=== PATIENT | female | born 1940 | race Caucasian/White ===

== ENCOUNTER 2018-03-15 12:55 | Emergency (ER) | payer MEDICARE, OTHER ==
[~2018-03-15] VITALS: Ht 162.6 cm; Wt 86.0 kg
[~2018-03-15 12:55] MED LIST: NEBUMIS6 XX
[2018-03-15 13:02] VITALS: BP 218/91; PULSE 95; RESP 18; TEMP 98; O2SAT 97
[2018-03-15 13:19] VITALS: BP 177/81; PULSE 97; RESP 20
--- NOTE | 2018-03-15 13:24 | PD ---
HPI Chief Complaint: Bleeding Time Seen by Provider: 13:14 Travel History International Travel<30 days: No Contact w/Intl Traveler<30days: No Traveled to known affect area: No History of Present Illness HPI 77-year-old female presents for evaluation of bleeding to the left lower extremity. She reports that 2 days ago she was shaving her left leg and she began bleeding from a varicose vein. She reports that the bleeding occurs every time she takes the bandage off. She endorses some aching pain associated with it. She is not on any blood thinning medications. She has no other complaints at this time. [facility] Past Medical History Arthritis: Yes (RA) COPD: Yes Kidney Stones: Yes Tetanus Vaccination: Unknown ?: Not Tubal Ligation: Yes Past Surgical History Tonsillectomy: Yes Social History Alcohol Use: Yes (1 DRINK DAILY) Tobacco Use: No Substance Use: No Allergies-Medications (Allergen,Severity, Reaction): Coded Allergies: acetaminophen (Unverified Allergy, Severe, NAUSEA, 03/15/18) propoxyphene (Unverified Allergy, Severe, VOMITING, 03/15/18) Reported Meds & Prescriptions Reported Meds & Active Scripts Active No Active Prescriptions or Reported Medications Review of Systems General / Constitutional: No: Fever, Chills Musculoskeletal: Positive: Pain Skin: Positive Other (Positive for bleeding) Physical Exam Narrative GENERAL: Well-developed well-nourished female no acute distress SKIN: Warm and dry. There is a bleeding varicose vein noted to the anterior left lower extremity. CARDIOVASCULAR: Regular rate and rhythm. No murmur appreciated. RESPIRATORY: No accessory muscle use. Clear to auscultation. Breath sounds equal bilaterally. MUSCULOSKELETAL: Skin as noted above. No edema. Data Data Last Documented VS Vital Signs Date Time Temp Pulse Resp B/P (MAP) Pulse Ox O2 Delivery O2 Flow Rate FiO2 03/15/18 13:19 97 20 177/81 (113) 03/15/18 13:02 98.0 97 Orders Orders Lidocai-Epi 1%-1:100,000 Inj (Xylocaine- (03/15/18 13:30) Silver Nitrate Applicators (Silver Nitra (03/15/18 13:45) Gelatin 12 Mm/7 Mm Top (Gelfoam 12 Mm/7 (03/15/18 13:45) [facility] Medical Decision Making Medical Screen Exam Complete: Yes Emergency Medical Condition: Yes Medical Record Reviewed: Yes Differential Diagnosis Bleeding varicose vein, abrasion, puncture wound Narrative Course A horizontal mattress suture will be placed around the bleeding wound. There continued to be slight oozing and therefore the skin was chemically cauterized with silver nitrate and then a pressure dressing with Gelfoam was placed. Patient's blood pressure is noted to be elevated in triage. She reports that although she does not check her blood pressure regularly, when she does check it is usually 120 systolic. Her blood pressure was rechecked when she was roomed and it is improved to 177/81. Likely elevated secondary to anxiety regards to her current situation. She does have a primary care physician. Recommended keeping a journal of her blood pressure readings for the next 1-2 weeks and to discuss the findings with her primary care physician. She is agreeable to this plan. She is requesting the name of truck service manager and vascular surgeon associated with [facility] that she would like to follow-up with in regards to her varicose veins as well as for routine cardiology evaluation. The names will be included in the discharge instructions. Procedures Procedure Narrative Bleeding varicose vein: Left lower extremity was prepped with Betadine, infiltrated 1% lidocaine with epinephrine. A single horizontal mattress suture was placed with 4-0 Prolene. Diagnosis Primary Impression: Bleeding from varicose vein Referrals: Damon Aleman MD, James T. MD Additional Instructions: Follow-up with a truck service manager such as Dr. Aleman in the vascular surgeon such as Dr. Vallecillo on an as-needed basis. Keep the pressure dressing on for 2 days. Wash very gently with soap and water when changing the dressings and change them on a daily basis. Elevate your legs as much as he can to reduce pressure on the wound. As discussed, monitor blood pressure and a regular basis and keep a journal of the readings. Return in 10-14 days for suture removal. Med/Other Pt SpecificInfo: Wound Care Scripts No Active Prescriptions or Reported Meds Disposition: 01 DISCHARGE HOME Condition: Stable Mustapha Soto March 15, 2018 13:24
[2018-03-15] MEDS ORDERED: LIDOCAINE 1%/EPINEPHrine 1:100,000 SOLN 50 ML VIAL INFIL ONE (13:30)
[2018-03-15] MEDS ORDERED: SILVER NITR/POTASSIUM NITRATE APPLICATORS TOPICAL ONE (13:45)
[2018-03-15] MEDS ORDERED: GELATIN 12 MM/7 MM FOAM TOPICAL ONE (13:45)
== END 2018-03-15 14:18 | disposition home or self-care (01) ==
LOC: NEPD 12:55
DX: I83.892 Varicose veins of left lower extremity with other complications (principal); R58 Hemorrhage, not elsewhere classified; M06.9 Rheumatoid arthritis, unspecified; J44.9 Chronic obstructive pulmonary disease, unspecified
CPT/HCPCS: 12001

== ENCOUNTER 2018-04-01 20:40 | Emergency (ER) | payer MEDICARE, OTHER ==
[~2018-04-01] VITALS: Ht 157.5 cm; Wt 87.0 kg
[2018-04-01 21:04] VITALS: BP 140/90; PULSE 85; RESP 16; TEMP 97.4; O2SAT 99
--- NOTE | 2018-04-01 23:15 | PD ---
HPI Chief Complaint: Skin Problem Time Seen by Provider: 23:04 Travel History International Travel<30 days: No Contact w/Intl Traveler<30days: No Traveled to known affect area: No History of Present Illness HPI 77-year-old white female presents emergency department for suture removal. She had a bleeding varicosity which was sutured over 10 days ago. She states that she had gone out of town and had just come back in. She is here for suture removal. She states that she does occasionally have a little bit of oozing but no persistent bleeding. No other complaints. No fever chills. No exacerbating or alleviating factors. No pain. PFSH Past Medical History Arthritis: Yes (RA) Cardiovascular Problems: Yes COPD: Yes Kidney Stones: Yes Respiratory: Yes Tubal Ligation: Yes Past Surgical History Tonsillectomy: Yes Social History Alcohol Use: Yes (1 DRINK DAILY) Tobacco Use: No Substance Use: No Allergies-Medications (Allergen,Severity, Reaction): Coded Allergies: acetaminophen (Unverified Allergy, Severe, NAUSEA, 04/01/18) Reported Meds & Prescriptions Reported Meds & Active Scripts Active No Active Prescriptions or Reported Medications Review of Systems General / Constitutional: No: Fever Eyes: No: Visual changes HENT: No: Headaches Cardiovascular: No: Chest Pain or Discomfort Respiratory: No: Shortness of Breath Gastrointestinal: No: Abdominal Pain Genitourinary: No: Dysuria Musculoskeletal: No: Pain Skin: No Rash Neurologic: No: Weakness Psychiatric: No: Depression Endocrine: No: Polydipsia Hematologic/Lymphatic: No: Easy Bruising Physical Exam Narrative GENERAL: This is a well-nourished, well-developed patient, in no apparent distress. SKIN: No rashes, ecchymoses or lesions. Warm and dry. HEAD: Atraumatic. Normocephalic. EYES: PERRL, EOMI, no discharge or injection. No scleral icterus. EARS: Clear NOSE: Nasal turbinates appear normal. THROAT: Mucosa pink and moist. Airway patent. NECK: Trachea midline. supple, moves head freely. LUNGS: Clear to auscultation. CV: Regular in rhythm. ABDOMEN: Soft nontender. EXT: No clubbing cyanosis or edema. There is a single intact suture in the left pretibial area. No signs of bleeding or infection. Data Data Last Documented VS Vital Signs Date Time Temp Pulse Resp B/P (MAP) Pulse Ox O2 Delivery O2 Flow Rate FiO2 04/01/18 21:04 97.4 85 16 140/90 (107) 99 Orders Orders Ed Discharge Order (04/01/18 23:12) MDM Medical Decision Making Medical Screen Exam Complete: Yes Emergency Medical Condition: No Medical Record Reviewed: Yes Differential Diagnosis MDM: High Differential diagnoses: Fracture, sprain, strain, dislocation, contusion, neurovascular injury Narrative Course Patient single suture is removed without incidence. Neosporin and Band-Aid applied. This is suture removal Diagnosis Primary Impression: Visit for suture removal Patient Instructions: General Instructions Additional Instructions: Rest. Continue daily wound care with soap, water, Neosporin. Follow-up with your doctor as needed. Med/Other Pt SpecificInfo: Wound Care Scripts No Active Prescriptions or Reported Meds Disposition: 01 DISCHARGE HOME Condition: Stable Aaron Bowen April 01, 2018 23:15
== END 2018-04-01 23:50 | disposition home or self-care (01) ==
LOC: NEPK 20:40
DX: R58 Hemorrhage, not elsewhere classified (principal); Z48.02 Encounter for removal of sutures
CPT/HCPCS: 99281

== ENCOUNTER → 2018-04-09 | Outpatient (CLI) | payer MEDICARE, OTHER ==
--- NOTE | 2018-04-14 09:02 | RSPPFT ---
DATE OF PROCEDURE: 04/09/18 COMMENTS: Spirometry demonstrates an FEV1 of 1.3 at 75% of predicted, FVC of 1.7 at 74%, FEF 25-75 of 71%. Post-bronchodilator study demonstrated improvements in the FEF 25-75. Lung volumes demonstrated a raised RV/TLC ratio indicating hyperinflation with air trapping. Diffusion capacity is moderately reduced. Flow volume loops are unremarkable. IMPRESSION: 1. Mild to moderate obstructive disease. 2. Minimal response to use of bronchodilator. 3. Moderate loss in diffusion capacity.
== END ==
LOC: HRSP 10:04
PROVIDERS: ATTEND Internal Medicine Cardiovascular Disease
DX: R06.02 Shortness of breath (principal)
CPT/HCPCS: 94060; 94726; 94729